=== PATIENT | male | born 1970 ===

== ENCOUNTER → 2017-09-23 | Outpatient (CLI) | payer OTHER | END | disposition home or self-care (01) | LOC: TOM 10:16 | DX: J93.9 Pneumothorax, unspecified (principal); J98.11 Atelectasis ==

== ENCOUNTER 2017-10-04 18:03 | Emergency (ER) | payer OTHER ==
[~2017-10-04] VITALS: Ht 167.6 cm; Wt 74.8 kg
== END 2017-10-05 00:41 | disposition home or self-care (01) ==
LOC: ER 18:03
DX: E16.1 Other hypoglycemia (principal)

== ENCOUNTER 2018-03-09 11:26 | Inpatient (IN) | payer OTHER ==
[~2018-03-09] VITALS: Ht 167.6 cm; Wt 77.1 kg
== END 2018-03-10 13:00 | disposition designated cancer center or children's hospital (05) | DRG 282 ==
LOC: ER 11:26 → ICU-2 19:26
PROC: B246ZZZ Ultrasonography of Right and Left Heart (ICD-10-PCS; principal; 2018-03-10)
DX: I21.4 Non-ST elevation (NSTEMI) myocardial infarction (principal); I10 Essential (primary) hypertension; E78.4 Other hyperlipidemia; R73.01 Impaired fasting glucose; K29.00 Acute gastritis without bleeding

== ENCOUNTER → 2019-09-13 | Outpatient (CLI) | payer OTHER | END | disposition home or self-care (01) | LOC: TOM 09:45 | DX: K56.690 Other partial intestinal obstruction (principal) ==